=== PATIENT | female | born 1995 | race Caucasian/White ===

== ENCOUNTER 2023-08-23 17:11 | Emergency (ER) | payer OTHER, SELFPAY ==
[2023-08-23 17:18] VITALS: BP 154/98
--- NOTE | 2023-08-23 17:28 | ED.GENMED ---
History of Present Illness
General
Chief Complaint: Foreign Body Removal
Source: patient
Exam Limitations: none
Time Seen by Provider: 08/23/23 17:12
Nursing documentation reviewed up to this point in time: agreed with
Travel History
Have you had any contact with someone who has COVID-19?: No
Do you have any symptoms of coronavirus? Fever > 100 degrees, chills, cough, shortness of breath, sore throat, loss of taste or smell, muscle aches, or headache?: No
History of Present Illness
History of Present Illness:
Pleasant 28-year-old female for [facility] sent in due to suspicion that she is packing fentanyl in her vagina. Patient denied having any foreign substance in her vagina and readily consented to a pelvic exam. Patient has
no complaints at this time. She does admit to a drug history that includes cocaine and fentanyl. She states that her last use was about 10 days ago. She has been in residential since 08/20/2023.
Review of Systems
Review of Systems
Allergies reviewed?: Yes
Other source history: guardian and transfer record
All Other Systems: ROS reviewed and negative except as documented in HPI and ROS
Constitutional: Reports no symptoms
EENT: Reports no symptoms
Respiratory: Reports no symptoms
Cardiac: Reports no symptoms
ABD/GI: Reports no symptoms
: Reports no symptoms
Musculoskeletal: Reports no symptoms
Skin: Reports no symptoms
Neurological: Reports no symptoms
Endocrine: Reports no symptoms
Hematologic/Lymphatic: Reports no symptoms
Psychiatric: Reports no symptoms
Phy Exam
General Physical Exam
General Presentation: well appearing and no apparent distress
ENT Exam
ENT Exam: EOMI
Pulmonary Exam
Pulmonary Exam: no respiratory distress
Genitourinary Exam Female
Exam Female: no adnexal tenderness, no CMT, no lesions, no mass and no vaginal discharge
Vaginal Exam: normal
Vaginal Bleeding: none
Visual exam of cervix: os closed
Uterus: normal size and nontender
Adnexa: Bilateral: Normal (Pelvic exam performed in the presence of female nursing)
Neurological Exam
Neurological Exam: alert and oriented x3
Musculoskeletal Exam
Musculoskeletal Exam: full ROM
Skin Exam
Skin Exam: normal color, warm/dry and other (Multiple scars. Wounds on bilateral thighs that are thoroughly dressed and covered from skin popping.)
Psychiatric Exam
Psychiatric Exam: normal mood/affect
Course
Vital Signs
Initial and Last Documented VS:
Initial Vital Signs
Temp Pulse Resp BP Pulse Ox
97.6 F 104 18 154/98 100
08/23/23 17:18 08/23/23 17:18 08/23/23 17:18 08/23/23 17:18 08/23/23 17:18
Last Documented Vital Signs
Temp Pulse Resp BP Pulse Ox
97.6 F 104 18 154/98 100
08/23/23 17:18 08/23/23 17:18 08/23/23 17:18 08/23/23 17:18 08/23/23 17:18
*Critical Care Note
Total Time (30-74mins, 75-104mins- exclusive of procedures): Not Applicable
ED Attending Note
-
Portions of this chart may have been created with voice recognition software.� Occasional wrong word or��sound alike� substitutions may have occurred due to the inherent limitations of voice recognition software.
Discharge Plan
Departure
Patient Disposition: Retirement
Date of Disposition: 08/23/23
Time of Disposition: 17:44
Patient with high blood pressure during this ER visit?: Yes
Discharge Problem:
Medical clearance for incarceration
Instructions: BLOOD PRESSURE
Referrals:
[facility] [Outside]
[facility] [Outside]
Activity Restrictions/Additional Instructions:
No foreign body was found on internal cavity exam
Patient medically cleared for incarceration
[Your prescriptions were sent electronically to the pharmacy that you specified.]
It was a pleasure meeting you and taking part in your care. We hope for your continued healing and wellness.
Please read discharge instructions in their entirety. However, they are for general education and may not describe your exact diagnosis at discharge. Information on your ER visit and medical conditions were discussed with you along with appropriate
follow up information...
If indicated, please take your medications as instructed and indicated on discharge paperwork.
Please schedule a follow up appointment as directed. Call to schedule an appointment
Please return to the emergency department with ANY change in, persisting, or worsening of symptoms. If any of your symptoms do not improve, or persist, or become more severe within 6-12 hours, please return to the emergency department for further
care.
Please return to the emergency department if you develop a headache, neck pain/stiffness, fever greater than 100.4F, chest pain, shortness of breath, persistent nausea, vomiting, slurred speech, difficulty walking, numbness/tingling, weakness, signs
of infection or any other symptoms that are worrisome to you.
If you have any questions or concerns please do not hesitate to call the Hospital at
Interventions
Interventions:
*Risk Screen - Suicide Last Done: 08/23/23 17:16
*General Assessment Last Done: 08/23/23 17:16
*Neglect/Abuse Screening Last Done: 08/23/23 17:16
ED- Fall Risk Assessment Last Done: 08/23/23 17:49
*ED COVID-19 Vaccine History Last Done: 08/23/23 17:16
*Nursing Disposition Last Done: 08/23/23 17:49
Discharge Date and Time
Discharge Date/Time: 08/23/23 17:49
Print Language: JAPANESE
== END 2023-08-23 17:49 ==
LOC: EMR 17:11
PROVIDERS: EMERGENCY PHYSICIAN Student in an Organized Health Care Education/Training Program
DX: Z02.79 Encounter for issue of other medical certificate (principal); Z03.823 Encounter for observation for suspected inserted (injected) foreign body ruled out
CPT/HCPCS: 99282